=== PATIENT | female | born 1975 | race Caucasian/White ===

== ENCOUNTER 2018-01-23 20:11 | Inpatient (IN) | payer SELFPAY ==
--- NOTE | 2018-01-23 21:01 | ED PDOC ---
Addendum entered and electronically signed by Kadi Pantoja MD 01/24/18 01:26: Physical Exam Vital Signs Temp Pulse Resp BP Pulse Ox 01/24/18 00:37 100 01/23/18 20:22 98.4 F 104 H 18 116/80 100 - Systems Exam Breast/Axillary: Present: Masses, Swelling, Tender to Palpation. No: Axillary Lymphad, Discoloration, Erythema (Francisco - Nicky (RN)), Nipple Discharge, Symmetrical Original Note: HPI: Abdomen History Per: Patient History/Exam Limitations: no limitations Onset/Duration Of Symptoms: Days Outside of [place] travel?: Yes Location?: [place] Current Symptoms Are (Timing): Still Present Severity: Mild Pain Scale Rating Of: 4 Location Of Pain/Discomfort: RUQ, RLQ, Suprapubic Quality Of Discomfort: Aching, Cramping, Burning, Pressure Associated Symptoms: denies: Fever, Chills, Nausea, Vomiting, Diarrhea, Loss Of Appetite, Back Pain, Constipation, Urinary Symptoms Alleviating Factors: Other (bowel movement) Additional Complaint(s): 42 year old female with PMH of asthma presents to ED with abdominal pain and breast pain. Abdominal pain has been present for 8 days, is burning, cramping and uncomfortable with a severity of 4/10. She states that holding in a bowel movement makes it worse and having a bowel movement relieves the pain. She was recently in [place] where she saw a physician for the same pain and was admitted for 24 hour observation but all tests and scans were WNL besides an enlarged liver and gallstones. Left breast pain has been chronic since September when she had a breast biopsy in [place] for a hard mas she found on self examination. S/p biopsy the wound was not healing so she saw Dr. Winter. Since seeing Dr. Winter the wound has healed but the pain, warmth and inflammation has not resolved. Her initial diagnosis from [facility] was a benign lesion but when she recently saw her surgeon he old her it could be inflammatory breast cancer. She denies consti pation, diarrhea, blood in stool, jaundice, weight loss, night sweats, urinary frequency, urgency, incontenince and vaginal discharge, breast dimpling or leakage, but admits to increased flatus. PCP: None, Breast Dr Winter PMH: Asthma (mild intermittent, rescue inhaler once every three days, no night wakenings, no ICU/intubations) Meds: Denies Allergies: Denies SHx: Denies Social: Occasional alcohol, denies tobacco and illict drugs FHx: Father HTN, Mother DM OBHx: LMP 12/31/17, regular every 28 days, 5a6 days moderate bleeding, 4 x full term without complications <Kadi Pantoja - Last Filed: 01/24/18 01:26> <Jose Torres - Last Filed: 01/24/18 16:10> Time Seen by Provider: 01/23/18 20:24 Chief Complaint (Nursing): Abdominal Pain Past Medical History Vital Signs: Last Vital Signs Temp 98.4 F 01/23/18 20:22 Pulse 104 H 01/23/18 20:22 Resp 18 01/23/18 20:22 BP 116/80 01/23/18 20:22 Pulse Ox 100 01/23/18 20:22 - Medical History PMH: Asthma (mild intermittend - rescue 1 x 3 days, no night, no ICU/intuibation) - Surgical History Other surgeries: L breast biopsy September 2017 - Family History Family History: States: Diabetes, Hypertension - Social History Current smoker - smoking cessation education provided: No Alcohol: Social Drugs: Denies <Kadi Pantoja - Last Filed: 01/24/18 01:26> Vital Signs: Last Vital Signs Temp 99.2 F 01/24/18 15:57 Pulse 64 01/24/18 15:57 Resp 18 01/24/18 15:57 BP 123/81 01/24/18 15:57 Pulse Ox 98 01/24/18 15:57 <Jose Torres - Last Filed: 01/24/18 16:10> - Home Medications Home Medications: Ambulatory Orders Medication Instructions Recorded Amoxicillin/Clavulanate [Augmentin 1 tab PO BID 01/24/18 875 MG-125 MG Tab] - Allergies Allergies/Adverse Reactions: Allergies Allergy/AdvReac Type Severity Reaction Status Date / Time chloroquine Allergy ITCHING Verified 01/23/18 20:22 tramadol Allergy RASH Verified 01/23/18 20:19 Review of Systems Constitutional: Negative for: Fever, Chills, Sweats, Weakness, Malaise, Weight loss Eyes: Negative for: Vision Change Cardiovascular: Negative for: Chest Pain, Palpitations Respiratory: Negative for: Cough, Shortness of Breath Gastrointestinal: Negative for: Nausea, Vomiting, Diarrhea, Constipation, Melena, Hematochezia, Hematemesis, Rectal Pain Genitourinary Female: Negative for: Dysuria, Frequency, Incontinence, Hematuria, Vaginal Discharge, Vaginal Bleeding Skin: Negative for: Rash, Lesions, Jaundice, Bruising Neurological: Negative for: Weakness, Numbness Psych: Negative for: Anxiety, Depression <Kadi Pantoja - Last Filed: 01/24/18 01:26> - Laboratory Results Result Diagrams: 01/23/18 21:19 01/23/18 21:19 Urine dip results: Positive for: Blood (moderate) - ECG O2 Sat by Pulse Oximetry: 100 - Progress ED Course And Treament: 42 year old female presents with 1 week history of abdominal pain and 3 month history of breast pain. Urine dip: moderate blood blood CBC: WNL CMP: AST 98, ALT 105, Alk Phos [address]: Hepatomegaly, likely acute cholecystitis recommended US study, free pelvic fluid, umbilical hernia, skin thickening of left breast. Blood CX ordered. As per CT findings patient was started on Zosyn. Dr Winter was contacted and requested patient be admitted. Surgery resident made aware of case. <Kadi Pantoja - Last Filed: 01/24/18 01:26> - Laboratory Results Result Diagrams: 01/23/18 21:19 01/23/18 21:19 <Jose Torres - Last Filed: 01/24/18 16:10> Disposition - Patient ED Disposition Is Patient to be Admitted: Yes - Disposition Disposition Time: 00:35 <Kadi Pantoja - Last Filed: 01/24/18 01:26> <Jose Torres - Last Filed: 01/24/18 16:10> - Clinical Impression Clinical Impression: Cholecystitis - Disposition Condition: STABLE
[2018-01-23 21:37] LABS: HEMOGLOBIN 12.4 g/dL (12.0-16.0); MEAN CELL VOLUME 77.7 fl (81.0-99.0); MEAN CORPUSCULAR HEMOGLOBIN 25.6 pg (27.0-31.0); RBC 4.84 Mil/uL (3.80-5.20); RED CELL DISTRIBUTION WIDTH 15.6 % (11.5-14.5); WHITE BLOOD COUNT 9.1 K/uL (4.8-10.8)
[2018-01-23 21:40] LABS: ALBUMIN 4.4 g/dL (3.5-5.0); ALT/SGPT 105 U/L (9-52); AST/SGOT 98 U/L (14-36); BLOOD UREA NITROGEN 11 mg/dl (7-17); CALCIUM 9.5 mg/dL (8.4-10.2); GFR NON-AFRICAN AMERICAN > 60
[2018-01-23] MEDS ORDERED: Iohexol 300 100 ML IJ ONE (21:59)
[2018-01-23] MEDS ORDERED: Sodium Chloride 0.9% 50 ML IV ONE (21:59)
[2018-01-23] MEDS ORDERED: Piperacillin/Tazobact 3.375 GM in Sodium Chloride 0.9% 100 ML IVPB STA (23:53)
[2018-01-24 00:53] LABS: VENOUS BLOOD GAS BASE EXCESS 5.8 mmol/L (0.0-2.0); VENOUS BLOOD GAS PCO2 44 mmHg (40-60); VENOUS BLOOD GAS PO2 66 mm/Hg (30-55); VENOUS BLOOD PH 7.45 (7.32-7.43)
[2018-01-24] MEDS ORDERED: Piperacillin/Tazobact 3.375 gm Inj IVPB ONE (00:55)
[2018-01-24] MEDS ORDERED: Lactated Ringer's 1,000 ML IV SCH (03:00)
[2018-01-24] MEDS: Oxycodone/Acetaminophen 5/325 mg Tab PO PRN ×4 (03:02→22:48)
[2018-01-24] MEDS: Piperacillin/Tazobact 3.375 GM in Sodium Chloride 0.9% 100 ML IVPB SCH ×4 (06:00→23:22)
[2018-01-24] MEDS: Lactated Ringer's 1,000 ML IV SCH ×2 (07:06→14:30)
--- NOTE | 2018-01-24 10:02 | CT ---
Date of service: 01/23/2018 PROCEDURE: CT Abdomen and Pelvis with contrast HISTORY: abd pain COMPARISON: None. TECHNIQUE: Contrast dose: 90 mL Omnipaque 300 Radiation dose: Total exam DLP = 445.8 mGy-cm. This CT exam was performed using one or more of the following dose reduction techniques: Automated exposure control, adjustment of the mA and/or kV according to patient size, and/or use of iterative reconstruction technique. FINDINGS: LOWER THORAX: Bilateral lower lobe calcified granulomas. Heart size normal. No focal consolidation or pleural effusion. LIVER: Multiple hepatic metastases. School Bus Technician lesions include 3.8 x 5.1 cm inferior right hepatic lobe and 3.2 x 4.7 cm left hepatic lobe lesions. Hilar region the logic lymph node measuring 2.9 x 2.9 cm. GALLBLADDER AND BILE DUCTS: Calcified cholelithiasis within a mildly contracted gallbladder with severe wall thickening/edema. PANCREAS: Unremarkable. No gross lesion or ductal dilatation. SPLEEN: Unremarkable. ADRENALS: Unremarkable. No mass. KIDNEYS AND URETERS: Unremarkable. No hydronephrosis. No solid mass. VASCULATURE: Unremarkable. No aortic aneurysm. BOWEL: Unremarkable. No obstruction. No gross mural thickening. APPENDIX: No findings to suggest acute appendicitis. PERITONEUM: Small fat containing umbilical hernia. No free fluid. No free air. LYMPH NODES: Extensive upper abdominal lymphadenopathy. School Bus Technician nodes include 2.8 x 2.1 cm portacaval node and 1.6 x 2.2 cm gastrohepatic ligament node among many others. BLADDER: Unremarkable. REPRODUCTIVE: Intrauterine device in place. Dominant left ovarian follicle measuring up to 2.2 cm. Small amount of pelvic fluid. BONES: No acute fracture. OTHER FINDINGS: Marked left breast skin thickening. IMPRESSION: Marked left breast skin thickening concerning for carcinoma. Extensive hepatic metastases and upper abdominal lymphadenopathy as above described. Please note the hepatic metastases lymphadenopathy was not reported on the preliminary interpretation provided by teleradiology. Calcified cholelithiasis within a somewhat contracted gallbladder with severe wall thickening/edema. Acute cholecystitis cannot be excluded. If there is obstruction of the cystic duct, this may be secondary to extrinsic compression from hilar region pathologic lymph node. Updated findings conveyed to ROCK Burch and Dr. Winter by Dr. Diego at 9:55 a.m. on 01/24/2018.
--- NOTE | 2018-01-24 10:03 | CP.PCM.HP ---
History of Present Illness - History of Present Illness History of Present Illness: SURGERY HISTORY AND PHYSICAL FOR DR. WINTER 42 yo with PMHx of asthma, ulcers presents to the ED with left breast pain and abdominal pain. The patient was [place] the [place] from [place] when her pain returned prompting her to come to the ED when she arrived. The abdominal pain began 1 week ago. She denies nausea, vomiting or diarrhea. It is not associated with food but pt states that she has been avoiding fried food. She had an [place] in [place] which per the patient, showed an enlarged liver with a stone in her gallbladder. Her pain had resolved but then returned on the plane. Her left breast pain has been present for about 3 months. She had a screening mammogram in [place] which showed a lesion in the upper half of the left breast. In September 2017, she had a trucut biopsy in [place] which per the records the patient brought shows apocrine metaplasia. Due to her clinical and intra- operative findings, she was advised to have an excision biopsy for proper and complete histological assessment by her surgeon in [place]. Pt states that her surgeon in [place] advised her that this may be inflammatory breast cancer. When previously in the [place], she saw Dr. Winter for the breast pain after the biopsy. Hematoma was suspected at that time. Pt had an US which showed at 11-12 o'clock radius, 9cm from the nipple is an ovoid mass parallel to the plane of the skin as well as suspicious lymphadenopathy at the left axilla. Recommen dation was for US guided core biopsy to exclude malignancy. Patient is currently scheduled for biopsy on 01/27/18. PMHx: asthma, ulcers Surgeries: left breast biopsy September 2017 in [place] Allergies: chloroquine, tramadol Social history: denies etoh, tobacco abuse, illicit drug use Present on Admission - Present on Admission Any Indicators Present on Admission: No Past Patient History - Past Medical History & Family History Past Medical History?: Yes - Past Social History Smoking Status: Never Smoked - CARDIAC Hx Cardiac Disorders: No - PULMONARY Hx Respiratory Disorders: No - NEUROLOGICAL Hx Neurological Disorder: No - HEENT Hx HEENT Problems: No - ENDOCRINE/METABOLIC Hx Endocrine Disorders: No - HEMATOLOGICAL/ONCOLOGICAL Hx Blood Disorders: No Hx AIDS: No Hx Human Immunodeficiency Virus (HIV): No - INTEGUMENTARY Hx Dermatological Problems: No - MUSCULOSKELETAL/RHEUMATOLOGICAL Hx Musculoskeletal Disorders: No Hx Falls: No - GASTROINTESTINAL Hx Gastrointestinal Disorders: Yes Hx Fatty Liver Disease: Yes Hx Ulcer: Yes - GENITOURINARY/GYNECOLOGICAL Hx Genitourinary Disorders: No - PSYCHIATRIC Hx Psychophysiologic Disorder: No Hx Substance Use: No - SURGICAL HISTORY Hx Surgeries: Yes Hx Breast Biopsy: Yes Other/Comment: Left wrist cyst removed and. left breast biopsy 09/2017 in [place] - ANESTHESIA Hx Anesthesia: Yes (local) Hx Anesthesia Reactions: No Hx Malignant Hyperthermia: No Has any member of the family had a problem w/ anesthesia?: No Meds Allergies/Adverse Reactions: Allergies Allergy/AdvReac Type Severity Reaction Status Date / Time chloroquine Allergy ITCHING Verified 01/23/18 20:22 tramadol Allergy RASH Verified 01/23/18 20:19 Physical Exam - Constitutional Appears: Well, Non-toxic, No Acute Distress - Head Exam Head Exam: ATRAUMATIC, NORMAL INSPECTION - Eye Exam Eye Exam: EOMI, Normal appearance - Respiratory Exam Respiratory Exam: NORMAL BREATHING PATTERN. absent: Respiratory Distress - Cardiovascular Exam Cardiovascular Exam: +S1, +S2 - GI/Abdominal Exam GI & Abdominal Exam: Soft, Tenderness (very mild tenderness to RUQ/epigastric area). absent: Distended, Firm, Guarding, Hernia, Rebound, Rigid Additional comments: Negative Leigh sign - Skin Additional comments: Left breast superior to the nipple: large mass palpated with edema and tenderness but no erythema or skin changes. Lymphadenopathy to left axilla No masses or lymphadenopathy to right side Results - Vital Signs Recent Vital Signs: Last Vital Signs Temp 99.1 F 01/24/18 08:22 Pulse 92 H 01/24/18 08:22 Resp 19 01/24/18 08:22 BP 113/81 01/24/18 08:22 Pulse Ox 97 01/24/18 08:22 - Labs Result Diagrams: 01/23/18 21:19 01/23/18 21:19 Labs: Laboratory Results - last 24 hr 01/23/18 01/23/18 01/24/18 21:19 21:19 00:48 WBC 9.1 RBC 4.84 Hgb 12.4 Hct 37.6 MCV 77.7 L MCH 25.6 L MCHC 33.0 RDW 15.6 H Plt Count 496 H D pO2 66 H VBG pH 7.45 H VBG pCO2 44 VBG HCO3 29.3 VBG Total CO2 32.0 H VBG O2 Sat (Calc) 96.0 H VBG Base Excess 5.8 H VBG Potassium 3.7 Glucose 91 Lactate 1.9 FiO2 21.0 Sodium 140 137.0 Potassium 3.9 Chloride 97 L 101.0 Carbon Dioxide 32 H Anion Gap 15 BUN 11 Creatinine 0.7 Est GFR ( Amer) > 60 Est GFR (Non-Af Amer) > 60 Random Glucose 101 Calcium 9.5 Phosphorus 3.6 Magnesium 1.9 Total Bilirubin 0.3 AST 98 H ALT 105 H Alkaline Phosphatase 334 H Total Protein 8.7 H Albumin 4.4 Globulin 4.3 H Albumin/Globulin Ratio 1.0 Venous Blood Potassium 3.7 Assessment & Plan - Assessment and Plan (Free Text) Assessment: 42yo [place]ese F presents for abdominal pain and left breast pain. Concern for metastatic breast cancer and possible cholecysitits - Afebrile, VSS - CT: Calcified cholelithiasis within a mildly contracted gallbladder with severe wall thickening/edema. Acute cholecystitis cannot be excluded. If there is obstruction of the cystic duct, this may be secondary to extrinsic compression from hilar region pathologic lymph node. Extensive hepatic metastases and upper abdominal lymphadenopathy. Extensive upper abdominal lymphadenopathy. Injection Wax Molder nodes include 2.8 x 2.1 cm portacaval node and 1.6 x 2.2 cm gastrohepatic ligament node among many others. Marked left breast skin thickening concerning for carcinoma. - Ultrasound ordered to evaluate gallbladder - NPO in case OR - Pt needs tissue diagnosis of breast mass. Has biopsy scheduled for 01/27/18. - Discussed plan with Dr. Moy Anne PGY-4 Decision To Admit - Pt Status Changed To: Hospital Disposition Of: Observation - . Bed Request Type: Med/Surg Admitting Physician: Ector Winter
--- NOTE | 2018-01-24 11:46 | US ---
Date of service: 01/24/2018 HISTORY: cholecystitis COMPARISON: Correlations made to CT scan of the abdomen and pelvis dated 01/23/2018. TECHNIQUE: Sonographic evaluation of the right upper quadrant of the abdomen. FINDINGS: LIVER: Measures 23.1 cm in length. Normal echogenicity of the liver parenchyma. Multiple hepatic masses, the largest in the left lobe measures 4.4 x 2.2 x 3.3 cm and the largest in the right lobe measures 4.3 x 3.5 x 4.2 cm. No intrahepatic bile duct dilatation. GALLBLADDER: Cholelithiasis with gallbladder wall thickening/edema and pericholecystic fluid. COMMON BILE DUCT: Measures 4 mm. No stones. No dilatation. PANCREAS: Unremarkable as visualized. No mass. No ductal dilatation. RIGHT KIDNEY: Measures 13.1 x 3.6 x 5.7 cm in length. Normal echogenicity. No calculus, mass, or hydronephrosis. AORTA: No aneurysmal dilatation. IVC: Unremarkable. OTHER FINDINGS: None . IMPRESSION: Hepatomegaly with multiple hepatic metastases. Cholelithiasis with gallbladder wall thickening/edema and pericholecystic fluid. Sonographic Marinelli's sign was not elicited. Gallbladder wall thickening is nonspecific and may be related to cholecystitis versus reactive to hepatic pathology.
[2018-01-25] MEDS: Lactated Ringer's 1,000 ML IV SCH ×2 (02:36→06:50)
[2018-01-25] MEDS: Oxycodone/Acetaminophen 5/325 mg Tab PO PRN ×3 (04:52→17:27)
[2018-01-25] MEDS: Piperacillin/Tazobact 3.375 GM in Sodium Chloride 0.9% 100 ML IVPB SCH ×2 (04:59→12:31)
[2018-01-25 06:16] LABS: BASO % 0.4 % (0.0-2.0); EOS # 0.1 K/uL (0.0-0.7); EOS % 1.1 % (0.0-4.0); HEMOGLOBIN 11.2 g/dL (12.0-16.0); LYMPH # 0.9 K/uL (1.0-4.3); LYMPH % 10.9 % (20.0-40.0); MEAN CELL VOLUME 77.1 fl (81.0-99.0); MEAN CORPUSCULAR HEMOGLOBIN 25.1 pg (27.0-31.0); MEAN CORPUSCULAR HGB CONC 32.6 g/dL (33.0-37.0); MONO # 0.8 K/uL (0.0-0.8); NEUT # 6.2 K/uL (1.8-7.0); NEUT % 77.6 % (50.0-75.0); NRBC % 0.2 % (0.0-0.0); PROTHROMBIN TIME 11.5 Seconds (9.8-13.1); RBC 4.47 Mil/uL (3.80-5.20); RED CELL DISTRIBUTION WIDTH 15.8 % (11.5-14.5)
[2018-01-25 06:19] LABS: PARTIAL THROMBOPLASTIN TIME 27.8 Seconds (25.6-37.1)
[2018-01-25 06:51] LABS: ALBUMIN 3.7 g/dL (3.5-5.0); ALT/SGPT 105 U/L (9-52); AST/SGOT 102 U/L (14-36); BLOOD UREA NITROGEN 8 mg/dl (7-17); CALCIUM 8.5 mg/dL (8.4-10.2); GFR NON-AFRICAN AMERICAN > 60
--- NOTE | 2018-01-25 09:43 | CP.PCM.PN ---
Addendum entered and electronically signed by Ector Winter MD 01/25/18 11:12: Plan for only core biopsy today, either by radiology or myself. Original Note: Subjective - Date & Time of Evaluation Date of Evaluation: 01/25/18 Time of Evaluation: 07:00 - Subjective Subjective: SURGERY PROGRESS NOTE FOR DR. WINTER Patient seen and examined at bedside. She reports left breast pain when the pain medication wears off. Denies abdominal pain, nausea or vomiting. States just has pressure in epigastric/RUQ area when palpated. She is NPO today for radiology biopsy vs surgical excisional biopsy Objective - Vital Signs/Intake and Output Vital Signs (last 24 hours): Temp Pulse Resp BP Pulse Ox 97.9 F 94 H 19 118/80 100 01/25/18 08:14 01/25/18 08:14 01/25/18 08:14 01/25/18 08:14 01/25/18 08:14 - Medications Medications: Current Medications Diphenhydramine HCl (Benadryl) 25 mg PO Q6 PRN PRN Reason: Allergy symptoms Last Admin: 01/25/18 04:52 Dose: 25 mg Piperacillin Sod/Tazobactam (Sod 3.375 gm/ Sodium Chloride) 100 mls @ 100 mls/hr IVPB Q6H [facility]; Protocol Last Admin: 01/25/18 04:59 Dose: 100 mls/hr Lactated Ringer's (Lactated Ringer's) 1,000 mls @ 125 mls/hr IV .Q8H [facility] Last Admin: 01/25/18 06:50 Dose: Not Given Oxycodone/Acetaminophen (Percocet 5/325 Mg Tab) 1 tab PO Q4 PRN PRN Reason: Pain, moderate (4-7) Stop: 01/27/18 02:39 Last Admin: 01/25/18 04:52 Dose: 1 tab - Labs Labs: 01/25/18 05:50 01/25/18 05:50 PT 11.5 Seconds (9.8-13.1) 01/25/18 05:50 INR 1.0 01/25/18 05:50 APTT 27.8 Seconds (25.6-37.1) 01/25/18 05:50 - Constitutional Appears: Well, Non-toxic, No Acute Distress - Head Exam Head Exam: ATRAUMATIC, NORMAL INSPECTION - Eye Exam Eye Exam: EOMI, Normal appearance - Respiratory Exam Respiratory Exam: NORMAL BREATHING PATTERN. absent: Respiratory Distress Additional comments: Left breast mass w/ palpable lymph nodes - Cardiovascular Exam Cardiovascular Exam: +S1, +S2 - GI/Abdominal Exam GI & Abdominal Exam: Soft. absent: Distended, Firm, Guarding, Rigid, Tenderness, Rebound - Neurological Exam Neurological Exam: Alert, Awake, Oriented x3 - Psychiatric Exam Psychiatric exam: Normal Affect, Normal Mood - Skin Skin Exam: Dry, Normal Color, Warm Assessment and Plan - Assessment and Plan (Free Text) Assessment: 42yo Wallisian F presents for abdominal pain and left breast pain. Concern for metastatic breast cancer - CT: Calcified cholelithiasis within a mildly contracted gallbladder with severe wall thickening/edema. Acute cholecystitis cannot be excluded. If there is obstruction of the cystic duct, this may be secondary to extrinsic joann edwar from hilar region pathologic lymph node. Extensive hepatic metastases and upper abdominal lymphadenopathy. Extensive upper abdominal lymphadenopathy. General Office Associate nodes include 2.8 x 2.1 cm p ortacaval node and 1.6 x 2.2 cm gastrohepatic ligament node among many others. Marked left breast skin thickening concerning for carcinoma. - Ultrasound: cholelithiasis with gallbladder wall thickening/edema - No surgery for cholecystectomy at this time. Gallbladder findings likely secondary to liver mets/abdominal lymphadenopathy - NPO for radiologic breast biopsy vs surgical excisional biopsy today - Oncology consulted, Dr. Scales - Discussed plan with Dr. Moy Anne PGY-4
--- NOTE | 2018-01-25 10:45 | CP.PCM.CON ---
History of Present Illness - History of Present Illness History of Present Illness: This is a 42 yrs old female who came to the ED with c/o left breast pain and right upper quadrant pain as well. For the last 3 months she has had discomfort in the left breast. On mammogram she had a mass in the left breast. She had a biopsy in October 2007 and was told that she had a apocrine metaplsia. She had another biopsy in [facility] and was told that she may have a inflammatory cancer. Pt was visiting [facility] but when she was about to return to [facility] the pain was worse, so she came back to the ED. She was seen by Dr Winter and a biopsy has been scheduled for 02/27/18. She has a past h/o gastric ulcer Does not smoke or drink. Past Patient History - Past Medical History & Family History Past Medical History?: Yes - Past Social History Smoking Status: Never Smoked - CARDIAC Hx Cardiac Disorders: No - PULMONARY Hx Respiratory Disorders: No - NEUROLOGICAL Hx Neurological Disorder: No - HEENT Hx HEENT Problems: No - ENDOCRINE/METABOLIC Hx Endocrine Disorders: No - HEMATOLOGICAL/ONCOLOGICAL Hx Blood Disorders: No Hx AIDS: No Hx Human Immunodeficiency Virus (HIV): No - INTEGUMENTARY Hx Dermatological Problems: No - MUSCULOSKELETAL/RHEUMATOLOGICAL Hx Musculoskeletal Disorders: No Hx Falls: No - GASTROINTESTINAL Hx Gastrointestinal Disorders: Yes Hx Fatty Liver Disease: Yes Hx Ulcer: Yes - GENITOURINARY/GYNECOLOGICAL Hx Genitourinary Disorders: No - PSYCHIATRIC Hx Psychophysiologic Disorder: No Hx Substance Use: No - SURGICAL HISTORY Hx Surgeries: Yes Hx Breast Biopsy: Yes Other/Comment: Left wrist cyst removed and. left breast biopsy 09/2017 in [facility] - ANESTHESIA Hx Anesthesia: Yes (local) Hx Anesthesia Reactions: No Hx Malignant Hyperthermia: No Has any member of the family had a problem w/ anesthesia?: No Meds Allergies/Adverse Reactions: Allergies Allergy/AdvReac Type Severity Reaction Status Date / Time chloroquine Allergy ITCHING Verified 01/23/18 20:22 tramadol Allergy RASH Verified 01/23/18 20:19 - Medications Medications: Current Medications Diphenhydramine HCl (Benadryl) 25 mg PO Q6 PRN PRN Reason: Allergy symptoms Last Admin: 01/25/18 10:13 Dose: 25 mg Piperacillin Sod/Tazobactam (Sod 3.375 gm/ Sodium Chloride) 100 mls @ 100 mls/hr IVPB Q6H [facility]; Protocol Last Admin: 01/25/18 04:59 Dose: 100 mls/hr Lactated Ringer's (Lactated Ringer's) 1,000 mls @ 125 mls/hr IV .Q8H [facility] Last Admin: 01/25/18 06:50 Dose: Not Given Oxycodone/Acetaminophen (Percocet 5/325 Mg Tab) 1 tab PO Q4 PRN PRN Reason: Pain, moderate (4-7) Stop: 01/27/18 02:39 Last Admin: 01/25/18 10:14 Dose: 1 tab Physical Exam - Additional Findings Additional findings: Physical therapy; Alert ,well oriented, in no acute distress Neck; supple, no adenopathy Chest; clear, no rales or rhonchi hEART; RSR,no murmur Abd; Soft, no mass, no h/s megaly Left breast has a 5-6 cm mass in her left breast in the 11 oclock area. Results - Vital Signs Recent Vital Signs: Last Vital Signs Temp 97.9 F 01/25/18 08:14 Pulse 94 H 01/25/18 08:14 Resp 19 01/25/18 08:14 BP 118/80 01/25/18 08:14 Pulse Ox 100 01/25/18 08:14 - Labs Result Diagrams: 01/25/18 05:50 01/25/18 05:50 Labs: Laboratory Results - last 24 hr 01/25/18 01/25/18 01/25/18 05:50 05:50 05:50 WBC 8.0 RBC 4.47 Hgb 11.2 L Hct 34.4 MCV 77.1 L MCH 25.1 L MCHC 32.6 L RDW 15.8 H Plt Count 457 H MPV 8.0 Neut % (Auto) 77.6 H Lymph % (Auto) 10.9 L Barrow % (Auto) 10.0 Eos % (Auto) 1.1 Baso % (Auto) 0.4 Neut # (Auto) 6.2 Lymph # (Auto) 0.9 L Barrow # (Auto) 0.8 Eos # (Auto) 0.1 Baso # (Auto) 0.0 PT 11.5 INR 1.0 APTT 27.8 Sodium 139 Potassium 4.2 Chloride 101 Carbon Dioxide 27 Anion Gap 15 BUN 8 Creatinine 0.6 L Est GFR ( Amer) > 60 Est GFR (Non-Af Amer) > 60 Random Glucose 93 Calcium 8.5 Phosphorus 3.6 Magnesium 1.9 Total Bilirubin 0.4 AST 102 H ALT 105 H Alkaline Phosphatase 331 H Total Protein 7.4 Albumin 3.7 Globulin 3.7 Albumin/Globulin Ratio 1.0
[2018-01-25] MEDS ORDERED: Lidocaine 1% w Epi 1:100,000 Inj ONE (13:32)
[2018-01-25] MEDS ORDERED: Lidocaine 1% 5ml Abboject ONE (13:32)
[2018-01-25] MEDS ORDERED: Bacitracin 500 Units/gm Oint Foilpak UD ONE (13:33)
[2018-01-25 13:54] VITALS: RESP 18
[2018-01-25] MEDS ORDERED: Lactated Ringer's 1,000 ML IV SCH (15:49)
[2018-01-25 15:57] VITALS: BP 125/86; PULSE 103; TEMP 98.5; O2SAT 99
--- NOTE | 2018-01-25 17:40 | CP.PCM.DIS ---
Provider - Provider Date of Admission: 01/24/18 00:00 Attending physician: Ector Winter MD Time Spent in preparation of Discharge (in minutes): 15 Diagnosis - Discharge Diagnosis (1) Mass of breast, left Status: Acute Priority: High Onset Date: ~11/25/17 Comment: s/p biopsy, pathology pending (2) Liver metastases Status: Acute Comment: Presumed, based on CT, ultrasound finding Hospital Course - Lab Results Lab Results: Micro Results 01/24/18 00:30 Blood Blood Culture - Preliminary NO GROWTH AFTER 24 HOURS Most Recent Lab Values WBC 8.0 K/uL (4.8-10.8) 01/25/18 05:50 RBC 4.47 Mil/uL (3.80-5.20) 01/25/18 05:50 Hgb 11.2 g/dL (12.0-16.0) L 01/25/18 05:50 Hct 34.4 % (34.0-47.0) 01/25/18 05:50 MCV 77.1 fl (81.0-99.0) L 01/25/18 05:50 MCH 25.1 pg (27.0-31.0) L 01/25/18 05:50 MCHC 32.6 g/dL (33.0-37.0) L 01/25/18 05:50 RDW 15.8 % (11.5-14.5) H 01/25/18 05:50 Plt Count 457 K/uL (130-400) H 01/25/18 05:50 MPV 8.0 fl (7.2-11.7) 01/25/18 05:50 Neut % (Auto) 77.6 % (50.0-75.0) H 01/25/18 05:50 Lymph % (Auto) 10.9 % (20.0-40.0) L 01/25/18 05:50 [place] % (Auto) 10.0 % (0.0-10.0) 01/25/18 05:50 Eos % (Auto) 1.1 % (0.0-4.0) 01/25/18 05:50 Baso % (Auto) 0.4 % (0.0-2.0) 01/25/18 05:50 Neut # (Auto) 6.2 K/uL (1.8-7.0) 01/25/18 05:50 Lymph # (Auto) 0.9 K/uL (1.0-4.3) L 01/25/18 05:50 [place] # (Auto) 0.8 K/uL (0.0-0.8) 01/25/18 05:50 Eos # (Auto) 0.1 K/uL (0.0-0.7) 01/25/18 05:50 Baso # (Auto) 0.0 K/uL (0.0-0.2) 01/25/18 05:50 PT 11.5 Seconds (9.8-13.1) 01/25/18 05:50 INR 1.0 01/25/18 05:50 APTT 27.8 Seconds (25.6-37.1) 01/25/18 05:50 pO2 66 mm/Hg (30-55) H 01/24/18 00:48 VBG pH 7.45 (7.32-7.43) H 01/24/18 00:48 VBG pCO2 44 mmHg (40-60) 01/24/18 00:48 VBG HCO3 29.3 mmol/L 01/24/18 00:48 VBG Total CO2 32.0 mmol/L (22-28) H 01/24/18 00:48 VBG O2 Sat (Calc) 96.0 % (40-65) H 01/24/18 00:48 VBG Base Excess 5.8 mmol/L (0.0-2.0) H 01/24/18 00:48 VBG Potassium 3.7 mmol/L (3.6-5.2) 01/24/18 00:48 Sodium 137.0 mmol/L (132-148) 01/24/18 00:48 Chloride 101.0 mmol/L (98-107) 01/24/18 00:48 Glucose 91 mg/dL (65-105) 01/24/18 00:48 Lactate 1.9 mmol/L (0.7-2.1) 01/24/18 00:48 FiO2 21.0 % 01/24/18 00:48 Sodium 139 mmol/l (132-148) 01/25/18 05:50 Potassium 4.2 MMOL/L (3.6-5.0) 01/25/18 05:50 Chloride 101 mmol/L (98-107) 01/25/18 05:50 Carbon Dioxide 27 mmol/L (22-30) 01/25/18 05:50 Anion Gap 15 (10-20) 01/25/18 05:50 BUN 8 mg/dl (7-17) 01/25/18 05:50 Creatinine 0.6 mg/dl (0.7-1.2) L 01/25/18 05:50 Est GFR ( Amer) > 60 01/25/18 05:50 Est GFR (Non-Af Amer) > 60 01/25/18 05:50 Random Glucose 93 mg/dL (65-105) 01/25/18 05:50 Calcium 8.5 mg/dL (8.4-10.2) 01/25/18 05:50 Phosphorus 3.6 mg/dl (2.5-4.5) 01/25/18 05:50 Magnesium 1.9 MG/DL (1.6-2.3) 01/25/18 05:50 Total Bilirubin 0.4 mg/dl (0.2-1.3) 01/25/18 05:50 AST 102 U/L (14-36) H 01/25/18 05:50 ALT 105 U/L (9-52) H 01/25/18 05:50 Alkaline Phosphatase 331 U/L (38-126) H 01/25/18 05:50 Total Protein 7.4 G/DL (6.3-8.2) 01/25/18 05:50 Albumin 3.7 g/dL (3.5-5.0) 01/25/18 05:50 Globulin 3.7 gm/dL (2.2-3.9) 01/25/18 05:50 Albumin/Globulin Ratio 1.0 (1.0-2.1) 01/25/18 05:50 Venous Blood Potassium 3.7 mmol/L (3.6-5.2) 01/24/18 00:48 - Hospital Course Hospital Course: Patient with L breast mass, s/p negative biopsy in [place], notes increasing pain and swelling L breast. CT scan now with possible liver mets. Ultrasound guided biopsy done, awaiting pathology Discharge Exam - Head Exam Head Exam: ATRAUMATIC, NORMAL INSPECTION - Eye Exam Eye Exam: EOMI. absent: Scleral icterus - ENT Exam ENT Exam: Mucous Membranes Moist - Neck Exam Neck exam: Full Rom - Respiratory Exam Respiratory Exam: UNREMARKABLE - Cardiovascular Exam Cardiovascular Exam: REGULAR RHYTHM - GI/Abdominal Exam GI & Abdominal Exam: Normal Bowel Sounds, Unremarkable. absent: Tenderness - Additional Findings Additional findings: L breast upper portion swollen. No skin changes. Discharge Plan - Discharge Medications Prescriptions: oxyCODONE/Acetaminophen [Percocet 5/325 mg Tab] 1 tab PO Q4 PRN #20 tab PRN Reason: Pain, Moderate (4-7) - Follow Up Plan Condition: STABLE Disposition: HOME/ ROUTINE Instructions: Cholecystitis (DC), Cholecystitis (GEN)
--- NOTE | 2018-01-26 07:47 | US ---
Date of service: 01/25/2018 PROCEDURE: ULTRASOUND-GUIDED CORE NEEDLE BIOPSY LEFT BREAST History Left breast mass increasing in size and palpability. TECHNIQUE/FINDINGS: Following full discussion of risks and benefits of the procedure with the patient including alternatives, patient freely gave written consent. Time out was called. Following sonographic identification of the lesion in question, maximum sterile barrier protection was provided to the skin overlying the lesion. Area of the procedure was marked. 2 cc of lidocaine was utilized for skin anesthesia and 4 cc of lidocaine with epinephrine was utilized for deep tissue anesthesia in both deep and superficial soft tissues local to two mass components with slightly different sonographic appearance, identified as Segment A (ovoid, deep) And Segment B (arborescent-nodular, superficial). A small incision was made using a scalpel and a 14-gauge coaxial core biopsy needle system was utilized under ultrasound control to obtain 3 core biopsies by 4 passes through Segment A. The guiding needle was redirected through the same incision site and advanced into Segment B with 3 additional core biopsies obtained by 3 passes. The initial 2 specimen were placed in separate buffered 10% formalin solution containers labeled Specimen A and Specimen B and sent to pathology. A solitary core from each segment was sent to microbiology for additional testing as well. A [place] U shaped biopsy clip was placed in segment a with [place] X shaped clip placed at segment be immediately after each set of biopsies. Postprocedure ultrasound demonstrates U shaped clip within segment A and x-ray clip within Segment B. Postprocedure mammogram is adequately concordant with sonographic appearance. Patient tolerated procedure well with very minimal blood loss. IMPRESSION: Status post ultrasound-guided core needle biopsy left breast as per above. An addendum will be issued when final pathology results are available
== END 2018-01-25 19:40 | disposition home or self-care (01) | DRG 598 ==
LOC: H.ER 20:11 → H.ERHOLD 01-24 → H.MEDSURG1 01-24 02:14
PROVIDERS: ADMIT Specialist; ATTEND Specialist
PROC: 0HBU3ZX Excision of Left Breast, Percutaneous Approach, Diagnostic (ICD-10-PCS; principal; 2018-01-25)
DX: C50.912 Malignant neoplasm of unspecified site of left female breast (principal); C78.7 Secondary malignant neoplasm of liver and intrahepatic bile duct; J45.20 Mild intermittent asthma, uncomplicated; K80.20 Calculus of gallbladder without cholecystitis without obstruction; R59.1 Generalized enlarged lymph nodes; Z88.6 Allergy status to analgesic agent; K76.0 Fatty (change of) liver, not elsewhere classified

== ENCOUNTER 2018-02-04 09:46 | Day surgery (SDC) | payer OTHER ==
[2018-02-04 10:34] VITALS: BMI 28.3
[2018-02-04] MEDS ORDERED: Lactated Ringer's 1,000 ML IV ONE ×2 (11:46→16:03)
[2018-02-04] MEDS ORDERED: Albuterol HFA 90 mcg/actuation (8 g) ONE (12:49)
--- NOTE | 2018-02-04 14:37 | CP.SDSHP ---
Same Day Surgery H & P - History Proposed Procedure: Port placement Pre-Op Diagnosis: Breast cancer - Allergies Allergies: Allergies chloroquine Allergy (Verified 02/04/18 10:35) ITCHING tramadol Allergy (Verified 02/04/18 10:35) SHORTNESS OF BREATH - Physical Exam Vital Signs: Vital Signs 02/04/18 11:29 Temperature 99 F Pulse Rate 93 H Respiratory 20 Rate Blood Pressure 119/77 O2 Sat by Pulse 98 Oximetry Mental Status: Alert & Oriented x3 Neuro: WNL Heart: WNL Lungs: WNL - Impression Impression: Pt with left breast cancer referred for port placement. Plan right IJV port placement. Informed consent obtained. Pt. Evaluated Today:Candidate for Anesthesia & Procedure: Yes (ASA 3 Malampati 3) - Date & Time Date: 02/04/18 Time: 14:30 Short Stay Discharge - Short Stay Discharge Admitting Diagnosis/Reason for Visit: BREAST CA, C50.9
[2018-02-04] MEDS ORDERED: Lidocaine 1% 5ml Abboject ONE ×2 (14:41→14:48)
[2018-02-04] MEDS ORDERED: Lidocaine 1% w Epi 1:100,000 Inj ONE (14:42)
--- NOTE | 2018-02-04 15:56 | PCM.SURG1 ---
Surgeon's Initial Post Op Note - Surgeon's Notes Surgeon: Donavan Morocho MD Signs And Displays Salesperson: NONE Type of Anesthesia: IV Sedation, Moderate Sedation{RN} Pre-Operative Diagnosis: Breast cancer Operative Findings: US showed patent right IJV Post-Operative Diagnosis: Breast cancer Operation Performed: Right IJ port placement. Specimen/Specimens Removed: NONE Estimated Blood Loss: EBL {In ML}: 10 Blood Products Given: N/A Drains Used: No Drains Post-Op Condition: Good Date of Surgery/Procedure: 02/04/18 Time of Surgery/Procedure: 15:50
[2018-02-04 16:10] VITALS: RESP 18
[2018-02-04] MEDS ORDERED: Lactated Ringer's 1,000 ML IV SCH (16:15)
[2018-02-04 17:36] VITALS: O2SAT 100
[2018-02-04 18:17] VITALS: BP 128/67; PULSE 64; TEMP 99.2
--- NOTE | 2018-02-05 11:07 | VASCULAR ---
PROCEDURE: Date of procedure: 02/04/2018 Procedure: 1. Placement of a right IJ port catheter with ultrasound and fluoroscopic guidance, CPT 84959 2. Catheter tip confirmation with spot radiograph in the superior vena cava. Medications: The patient was sedated anesthesiologist along with monitoring, Ancef 1 gm, Lidocaine 1% w Epinephrine Fluoroscopic time: 44.7 Seconds Radiation: 5.97 MGy Blood loss: 4 cc HISTORY: Breast cancer requiring port for chemotherapy TECHNIQUE: Following informed consent the procedure time-out, patient was placed supine on the interventional table and the right neck and chest were prepped and draped in the usual sterile fashion. Ultrasound showed a compressible right internal jugular vein. After the patient was sedated by the anesthesiologist, the skin anesthetized with 1% lidocaine with epinephrine. Under direct ultrasound guidance, the right internal jugular vein was accessed with micropuncture technique. A guidewire was then advanced under fluoroscopic guidance into the superior vena cava. An image documenting ultrasound guidance for vascular access was permanently saved. The subcutaneous tissue of patient right chest was infiltrated with 1 percent lidocaine with epinephrine. A dermatotomy was made with a 15. Scalpel. The port pocket was then created with blunt dissection using a Yari clamp. The port pocket was flushed. A port catheter was then tunneled under the skin and out the venotomy site. The port catheter was flushed, advanced through a peel-away sheath, adjusted for length, and attached to the port. The port was placed in the port pocket and was secured with 2-0 SurgiPro sutures. The port was flushed and locked with heparin. The port pocket was then closed with absorbable 4-0 Polysorb sutures. The port pocket and the venotomy site were reprepped with ChloraPrep. Steri-Strips were then applied to the port incision also venotomy site. A sterile dressing was then applied. Final spot radiograph showed the right IJ port catheter with tip of the port catheter in the superior vena cava. A port is functional and ready for use. IMPRESSION: Placement of right IJ port catheter. The tip of the port is in the superior vena cava.
== END 2018-02-04 18:30 | disposition home or self-care (01) ==
LOC: H.OPSURG 09:46
PROVIDERS: ATTEND Specialist
DX: C50.912 Malignant neoplasm of unspecified site of left female breast (principal)
CPT/HCPCS: 36561; A4310; C1751; C1769; J0690; J1885; J2250; J2405; J3010; J7120

== ENCOUNTER 2018-02-19 21:26 | Emergency (ER) | payer SELFPAY ==
[2018-02-19 21:27] VITALS: BMI 28.8
[2018-02-19 21:49] VITALS: O2SAT 96
[2018-02-19] MEDS ORDERED: Sodium Chloride 0.9% 1,000 ML IV STA (22:40)
[2018-02-19 23:31] LABS: VENOUS BLOOD GAS BASE EXCESS 6.9 mmol/L (0.0-2.0); VENOUS BLOOD GAS PCO2 46 mmHg (40-60); VENOUS BLOOD GAS PO2 38 mm/Hg (30-55); VENOUS BLOOD PH 7.45 (7.32-7.43)
[2018-02-19 23:35] LABS: BASO # 0.1 K/uL (0.0-0.2); BASO % 0.5 % (0.0-2.0); EOS % 0.1 % (0.0-4.0); HEMOGLOBIN 9.1 g/dL (12.0-16.0); LYMPH # 2.4 K/uL (1.0-4.3); LYMPH % 9.7 % (20.0-40.0); MEAN CELL VOLUME 72.8 fl (81.0-99.0); MEAN CORPUSCULAR HEMOGLOBIN 23.2 pg (27.0-31.0); MEAN CORPUSCULAR HGB CONC 31.8 g/dL (33.0-37.0); MEAN PLATELET VOLUME 8.4 fl (7.2-11.7); MONO # 3.4 K/uL (0.0-0.8); MONO % 13.5 % (0.0-10.0); NEUT # 18.9 K/uL (1.8-7.0); NEUT % 76.2 % (50.0-75.0); NRBC % 0.4 % (0.0-0.0); PLATELET COUNT 266 K/uL (130-400); RBC 3.92 Mil/uL (3.80-5.20); RED CELL DISTRIBUTION WIDTH 17.7 % (11.5-14.5); WHITE BLOOD COUNT 24.9 K/uL (4.8-10.8)
[2018-02-19 23:49] LABS: ALBUMIN 3.9 g/dL (3.5-5.0); ALT/SGPT 55 U/L (9-52); AST/SGOT 94 U/L (14-36); BILIRUBIN,DIRECT 0.2 mg/ml (0.0-0.4); BLOOD UREA NITROGEN 10 mg/dl (7-17); CALCIUM 9.4 mg/dL (8.4-10.2); GFR NON-AFRICAN AMERICAN > 60
[2018-02-20 01:26] LABS: SQUAMOUS EPITHIAL 3 /hpf (0-5); URINE BACTERIA RARE (<OCC); URINE BILIRUBIN NEGATIVE (NEGATIVE); URINE BLOOD NEGATIVE (NEGATIVE); URINE CLARITY SLIGHTY-CLOUDY (Clear); URINE COLOR YELLOW (YELLOW); URINE GLUCOSE (UA) NEG (Normal); URINE LEUKOCYTE ESTERASE NEG Leu/uL (Negative); URINE PROTEIN 30 mg/dL (NEGATIVE); URINE UROBILINOGEN 0.2-1.0 mg/dL (0.2-1.0)
[2018-02-20 01:32] VITALS: BP 135/85; PULSE 98; RESP 18; TEMP 98.8
[2018-02-20 01:33] LABS: BANDS 7 % (0-2); BASOPHIL 1 % (0-2); GIANT PLATELETS PRESENT; LARGE PLATELETS PRESENT; LYMPHOCYTE 13 % (20-50); METAMYELOCYTE 6 % (0-0); MONOCYTE 10 % (0-10); MYELOCYTE 9 % (0-0); NEUTROPHIL 54 % (42-75); PLATELET ESTIMATE NORMAL (NORMAL); SMUDGE CELLS PRESENT; TOTAL CELLS COUNTED 100
[2018-02-20 01:34] LABS: ANISOCYTOSIS SLIGHT
[2018-02-20 01:36] LABS: HYPOCHROMIC SLIGHT; MICROCYTOSIS SLIGHT
[2018-02-20 01:37] LABS: TOXIC GRANULATION PRESENT
--- NOTE | 2018-02-20 02:38 | ED PDOC ---
HPI: Headache Time Seen by Provider: 02/19/18 22:30 Chief Complaint (Nursing): Headache Chief Complaint (Provider): Headache History Per: Patient History/Exam Limitations: no limitations Onset/Duration Of Symptoms: Days (x3) Current Symptoms Are (Timing): Still Present Quality: Other (Throbbing) Additional Complaint(s): 42 y/o female with a PMHx of Active Breast Cancer presents to the ED for evaluation of a headache, onset three days ago. Patient is currently undergoing AC-T chemotherapy and had her last infusion on 02/08/2018. Patient describes headache as throbbing, non-thunder clap and is not maximal at onset. Patient reports headache is associated with a fever (TMax of 100.3 at home), dry, non- productive cough, urinary symptoms, nausea, vomiting, abdominal pain, recent travel and sick contacts. PMD: Mahendra Scales Past Medical History Reviewed: Historical Data, Nursing Documentation, Vital Signs Vital Signs: Last Vital Signs Temp 98.8 F 02/20/18 01:25 Pulse 98 H 02/20/18 01:25 Resp 18 02/20/18 01:25 BP 135/85 02/20/18 01:25 Pulse Ox 96 02/20/18 01:25 - Medical History PMH: Asthma Denies: HIV Other PMH: Breast CA - Surgical History Surgical History: No Surg Hx - Family History Family History: States: Diabetes, Hypertension - Home Medications Home Medications: Ambulatory Orders Medication Instructions Recorded oxyCODONE/Acetaminophen [Percocet 1 tab PO Q4 PRN #20 tab 01/25/18 5/325 mg Tab] DiphenhydrAMINE [Benadryl] 25 mg PO ASDIR PRN 02/04/18 Acetaminophen [Tylenol] 1 tab PO PRN PRN 02/08/18 Amoxicillin 500 mg PO TID 7 Days #21 tablet 02/20/18 - Allergies Allergies/Adverse Reactions: Allergies Allergy/AdvReac Type Severity Reaction Status Date / Time chloroquine Allergy ITCHING Verified 02/19/18 21:43 tramadol Allergy SHORTNESS Verified 02/19/18 21:43 OF BREATH Review of Systems ROS Statement: Except As Marked, All Systems Reviewed And Found Negative Constitutional: Positive for: Fever Respiratory: Positive for: Cough Gastrointestinal: Negative for: Nausea, Vomiting, Abdominal Pain Genitourinary Female: Negative for: Dysuria, Frequency, Incontinence, Hematuria Neurological: Positive for: Headache Physical Exam - Reviewed Nursing Documentation Reviewed: Yes Vital Signs Reviewed: Yes - Physical Exam Appears: Negative for: Well (Tired appearing) Head Exam: Positive for: ATRAUMATIC, NORMOCEPHALIC Skin: Positive for: Normal Color, Warm Eye Exam: Positive for: Normal appearance, EOMI, PERRL Neck: Positive for: Normal, Painless ROM Cardiovascular/Chest: Positive for: Regular Rate, Rhythm. Negative for: Murmur Respiratory: Positive for: Normal Breath Sounds. Negative for: Respiratory Distress Gastrointestinal/Abdominal: Positive for: Normal Exam, Soft. Negative for: Tenderness Back: Positive for: Normal Inspection. Negative for: L CVA Tenderness, R CVA Tenderness, Vertebral Tenderness Extremity: Positive for: Normal ROM. Negative for: Pedal Edema, Deformity Neurologic/Psych: Positive for: Alert, Oriented. Negative for: Motor/Sensory Deficits, Aphasia - Laboratory Results Result Diagrams: 02/19/18 23:27 02/19/18 23:27 - ECG O2 Sat by Pulse Oximetry: 96 (RA) Pulse Ox Interpretation: Normal Medical Decision Making Medical Decision Making: A/P: 42 y/o female with a PMHx of Breast CA presenting with fever of a currently unknown source. ] -- Will initiate sepsis workup -- Hydrate -- Re-evaluate -- VBG -- CT Head w/o contrast -- BMP -- Liver Profile -- CBC with Differentials -- CXR Two Views -- Influenza Type A and B AB -- Sodium Chloride 0.9% IV 1000 mls/hr -- Reglan 10 mg IVPB -- Tylenol 650 mg PO -- Blood Culture -- Urine C&S -- Influenza A B -- Urinalysis Case discussed with Dr. Scales who states patient can followup as outpatient, advised prophylactic ABx that she will evaluate for discontinuation upon office visit Patient is feeling much better, very well appearing Vitals improved Scribe Attestation: Documented by Dian Martínez, acting as a scribe for Mynor Pate MD. Provider Scribe Attestation: All medical record entries made by the Scribe were at my direction and personally dictated by me. I have reviewed the chart and agree that the record a ccurately reflects my personal performance of the history, physical exam, medical decision making, and the department course for this patient. I have also personally directed, reviewed, and agree with the discharge instructions and disposition. Disposition - Clinical Impression Clinical Impression: Fever - Disposition Referrals: Mahendra Scales MD [Family Provider] - Disposition: Routine/Home Disposition Time: 02:40 Condition: STABLE Prescriptions: Amoxicillin 500 mg PO TID 7 Days #21 tablet Instructions: Fever of Unknown Origin Forms: [facility] (Djiboutian)
--- NOTE | 2018-02-20 10:14 | RAD ---
Date of service: 02/19/2018 HISTORY: Breast CA, fever COMPARISON: No prior. TECHNIQUE: Chest PA and lateral FINDINGS: LUNGS: No active pulmonary disease. PLEURA: No significant pleural effusion identified. No pneumothorax apparent. CARDIOVASCULAR: No aortic atherosclerotic calcification present. Normal cardiac size. No pulmonary vascular congestion. OSSEOUS STRUCTURES: No significant abnormalities. VISUALIZED UPPER ABDOMEN: Normal. OTHER FINDINGS: Right internal jugular access chest port with catheter tip in the internal jugular vein. IMPRESSION: No active disease. Malpositioned chest port with catheter tip in the internal jugular vein. ER notification submitted electronically.
--- NOTE | 2018-02-20 10:17 | CT ---
Date of service: 02/19/2018 PROCEDURE: CT HEAD WITHOUT CONTRAST. HISTORY: breast CA, headache, fever COMPARISON: None available. TECHNIQUE: Axial computed tomography images were obtained through the head/brain without intravenous contrast. Radiation dose: Total exam DLP = 840.36 mGy-cm. This CT exam was performed using one or more of the following dose reduction techniques: Automated exposure control, adjustment of the mA and/or kV according to patient size, and/or use of iterative reconstruction technique. FINDINGS: HEMORRHAGE: No intracranial hemorrhage. BRAIN: No mass effect or edema. No atrophy or chronic microvascular ischemic changes. VENTRICLES: Unremarkable. No hydrocephalus. CALVARIUM: Unremarkable. PARANASAL SINUSES: Near complete opacification of the left maxillary sinus. MASTOID AIR CELLS: Unremarkable as visualized. No inflammatory changes. OTHER FINDINGS: None. IMPRESSION: No acute intracranial pathology. Left maxillary sinus disease.
== END 2018-02-20 01:38 | disposition home or self-care (01) ==
LOC: H.ER 21:26
DX: R50.9 Fever, unspecified (principal); C50.919 Malignant neoplasm of unspecified site of unspecified female breast
CPT/HCPCS: 70450; 71046; 80048; 80076; 81003; 81025; 82803; 85025; 87040; 87086; 87804; 96374; 99285; J1885; J2765; J7030

== ENCOUNTER 2018-03-01 13:52 | Emergency (ER) | payer SELFPAY ==
[2018-03-01 13:52] VITALS: BMI 27.3
[~2018-03-01 13:52] MED LIST: Albuterol-Ipratrop 3 mg / 0.5 (3 ml) UD ONE
[2018-03-01 14:02] VITALS: RESP 16; TEMP 98.6; O2SAT 100
--- NOTE | 2018-03-01 14:15 | ED PDOC ---
HPI: SOB/CHF/COPD Time Seen by Provider: 03/01/18 13:58 Chief Complaint (Nursing): Allergic Reaction History Per: Patient Onset/Duration Of Symptoms: Hrs (1) Current Symptoms Are (Timing): Better Initiating Event: Possible Allergic Reaction Quality: Tightness Severity: Moderate Additional Complaint(s): Transferred from infusion center after developing sudden onset SOB and wheezing after receiving Taxol for Breast Ca. Had received Taxol in past with no reaction. Received Decadron, Benadryl and nebulizer txs prior to arrival with improvement. Past Medical History Vital Signs: Last Vital Signs Temp 98.6 F 03/01/18 13:59 Pulse 92 H 03/01/18 13:59 Resp 16 03/01/18 13:59 BP 127/75 03/01/18 13:59 Pulse Ox 100 03/01/18 13:59 - Medical History PMH: Asthma, Malignancy (Breast) Denies: HIV - Family History Family History: States: Diabetes, Hypertension - Home Medications Home Medications: Ambulatory Orders Medication Instructions Recorded DiphenhydrAMINE [Benadryl] 25 mg PO ASDIR PRN 02/04/18 Acetaminophen [Tylenol] 1 tab PO PRN PRN 02/08/18 DiphenhydrAMINE [Benadryl] 25 mg PO Q6 #20 cap 03/01/18 Famotidine [Pepcid] 20 mg PO Q12 #20 tab 03/01/18 Prednisone 50 mg PO DAILY #5 tab 03/01/18 - Allergies Allergies/Adverse Reactions: Allergies Allergy/AdvReac Type Severity Reaction Status Date / Time chloroquine Allergy ITCHING Verified 02/19/18 21:43 tramadol Allergy SHORTNESS Verified 02/19/18 21:43 OF BREATH Review of Systems ROS Statement: Except As Marked, All Systems Reviewed And Found Negative Respiratory: Positive for: Shortness of Breath Gastrointestinal: Positive for: Abdominal Pain Physical Exam - Reviewed Nursing Documentation Reviewed: Yes Vital Signs Reviewed: Yes - Physical Exam Appears: Positive for: Non-toxic, No Acute Distress Head Exam: Positive for: ATRAUMATIC, NORMAL INSPECTION, NORMOCEPHALIC Skin: Positive for: Normal Color, Warm, DRY Eye Exam: Positive for: EOMI, Normal appearance, PERRL ENT: Positive for: Normal ENT Inspection Neck: Positive for: Normal, Painless ROM Cardiovascular/Chest: Positive for: Regular Rate, Rhythm Respiratory: Positive for: Wheezing (Mild end expiratory). Negative for: Respiratory Distress Gastrointestinal/Abdominal: Positive for: Normal Exam, Soft Back: Positive for: Normal Inspection Extremity: Positive for: Normal ROM Neurologic/Psych: Positive for: Alert, Oriented - Laboratory Results Result Diagrams: 03/01/18 15:30 03/01/18 15:30 - ECG O2 Sat by Pulse Oximetry: 100 - Progress Re-evaluation Time: 16:51 Condition: Improved Disposition - Clinical Impression Clinical Impression: Allergic reaction - Patient ED Disposition Is Patient to be Admitted: No Counseled Patient/Family Regarding: Studies Performed, Diagnosis, Need For Followup, Rx Given - Disposition Referrals: Mahendra Scales MD [Staff Provider] - Disposition: Routine/Home Disposition Time: 16:50 Condition: FAIR Prescriptions: DiphenhydrAMINE [Benadryl] 25 mg PO Q6 #20 cap Famotidine [Pepcid] 20 mg PO Q12 #20 tab Prednisone 50 mg PO DAILY #5 tab Instructions: Drug Allergy Forms: [facility] (Serbian)
[2018-03-01] MEDS ORDERED: Iodixanol 320 MG/ML 100 ML BOTTLE IV ONE (14:34)
[2018-03-01] MEDS ORDERED: Sodium Chloride 0.9% 50 ML IV ONE (14:34)
--- NOTE | 2018-03-01 14:50 | CARD ---
APPROVED REPORT Date of service: 03/01/2018 EKG Measurement Heart [id number] <Conclusion> Sinus tachycardia Otherwise normal ECG
[2018-03-01 15:46] LABS: BASO # 0.1 K/uL (0.0-0.2); BASO % 0.8 % (0.0-2.0); EOS % 0.1 % (0.0-4.0); LYMPH # 1.6 K/uL (1.0-4.3); LYMPH % 11.9 % (20.0-40.0); MEAN CELL VOLUME 72.5 fl (81.0-99.0); MEAN CORPUSCULAR HEMOGLOBIN 23.1 pg (27.0-31.0); MEAN CORPUSCULAR HGB CONC 31.8 g/dL (33.0-37.0); MEAN PLATELET VOLUME 8.4 fl (7.2-11.7); MONO # 0.7 K/uL (0.0-0.8); MONO % 5.7 % (0.0-10.0); NEUT # 10.7 K/uL (1.8-7.0); NEUT % 81.5 % (50.0-75.0); NRBC % 8.8 % (0.0-0.0); RBC 4.33 Mil/uL (3.80-5.20); RED CELL DISTRIBUTION WIDTH 19.3 % (11.5-14.5); WHITE BLOOD COUNT 13.1 K/uL (4.8-10.8)
[2018-03-01 16:01] LABS: ALB/GLOB RATIO 1.1 (1.0-2.1); ALBUMIN 4.8 g/dL (3.5-5.0); ALT/SGPT 30 U/L (9-52); AST/SGOT 64 U/L (14-36); BLOOD UREA NITROGEN 10 mg/dl (7-17); CALCIUM 9.5 mg/dL (8.4-10.2); GFR NON-AFRICAN AMERICAN > 60
--- NOTE | 2018-03-01 16:16 | CT ---
Date of service: 03/01/2018 PROCEDURE: CT Chest with contrast (Pulmonary Angiogram) HISTORY: SOB h/o breast Ca COMPARISON: Abdomen pelvis CT with contrast 01/23/2018. TECHNIQUE: Axial computed tomography images were obtained of the chest in the pulmonary arterial phase of enhancement. Coronal and sagittal reformatted images were created and reviewed. Intravenous contrast dose: Visipaque 320, 80 cc Radiation dose: Total exam DLP = 349.2 mGy-cm. This CT exam was performed using one or more of the following dose reduction techniques: Automated exposure control, adjustment of the mA and/or kV according to patient size, and/or use of iterative reconstruction technique. FINDINGS: PULMONARY ARTERIES: No CT evidence of pulmonary embolism. AORTA: No acute findings. No thoracic aortic aneurysm. No aortic atherosclerotic calcification or mural plaque present. LUNGS: Minimal bibasilar dependent atelectasis identified. Central airways appear clear. No nodule, mass or pulmonary consolidation. PLEURAL SPACES: Unremarkable. No effusion or pneumothorax. HEART: Unremarkable. No cardiomegaly. No significant pericardial effusion. LYMPH NODES: Gross left axillary adenopathy identified including a 3.1 x 2.1 cm cm lymph node. Similar lymph nodes are seen in the retro pectoralis region as well. BONES, CHEST WALL: Enlarged left breast is appreciated with markedly thickened skin and surgical clips at the upper left breast. OTHER FINDINGS: Likely hepatic metastases again evident. IMPRESSION: No CT evidence of pulmonary embolus. No infiltrate, pleural or pericardial effusion or significant mediastinal lymphadenopathy. No gross hilar adenopathy. Gross pathological changes seen related to the left breast in this patient with known history of aggressive left breast invasive ductal carcinoma with marked left axillary and retropectoral lymphadenopathy. No definite evidence of pulmonary metastasis at this time. Likely a patent metastases again evident.
--- NOTE | 2018-03-01 16:45 | RAD ---
Date of service: 03/01/2018 HISTORY: SOB COMPARISON: Chest radiographs 02/19/2018. TECHNIQUE: Chest PA and lateral FINDINGS: LUNGS: No active pulmonary disease. PLEURA: No significant pleural effusion identified. No pneumothorax apparent. CARDIOVASCULAR: No aortic atherosclerotic calcification present. Right MediPort is again identified placed with the tip terminating in the mid right internal jugular vein region directed cephalad rather than caudad as previously shown. Normal cardiac size. No pulmonary vascular congestion. OSSEOUS STRUCTURES: No significant abnormalities. VISUALIZED UPPER ABDOMEN: Normal. OTHER FINDINGS: None. IMPRESSION: No interval acute cardiopulmonary disease. Distal tip of right MediPort now directed cephalad but still in the right inferior vena cava.
[2018-03-01 17:08] VITALS: BP 117/81; PULSE 68
== END 2018-03-01 17:08 | disposition home or self-care (01) ==
LOC: H.ER 13:52
DX: T78.40XA Allergy, unspecified, initial encounter (principal); J44.9 Chronic obstructive pulmonary disease, unspecified; Z85.3 Personal history of malignant neoplasm of breast
CPT/HCPCS: 71046; 71275; 80053; 81025; 85025; 93005; 96374; 99283; Q9967

== ENCOUNTER 2018-03-03 09:37 | Day surgery (SDC) | payer OTHER ==
[2018-03-03 10:02] VITALS: BMI 26.2
[2018-03-03] MEDS ORDERED: Iodixanol 320 MG/ML 100 ML BOTTLE IV ONE (11:27)
[2018-03-03 11:59] VITALS: RESP 18
[2018-03-03 12:19] VITALS: BP 116/82; PULSE 77; TEMP 98.7; O2SAT 99
--- NOTE | 2018-03-03 12:44 | CP.SDSHP ---
Same Day Surgery H & P - History Proposed Procedure: Medication port check Pre-Op Diagnosis: Malfunction of the right sided medicatoin port. - Allergies Allergies: Allergies chloroquine Allergy (Verified 02/19/18 21:43) ITCHING tramadol Allergy (Verified 02/19/18 21:43) SHORTNESS OF BREATH - Physical Exam Vital Signs: Vital Signs 03/03/18 03/03/18 03/03/18 10:30 11:58 12:00 Temperature 98.3 F 98.4 F 98.7 F Pulse Rate 87 70 77 Respiratory 20 18 18 Rate Blood Pressure 105/70 114/74 116/82 O2 Sat by Pulse 100 99 Oximetry Short Stay Discharge - Short Stay Discharge Admitting Diagnosis/Reason for Visit: BREAST CA Disposition: HOME/ ROUTINE
--- NOTE | 2018-03-03 12:47 | PCM.SURG1 ---
Surgeon's Initial Post Op Note - Surgeon's Notes Surgeon: Jesús Architectural Sales Consultant: None Type of Anesthesia: Local Pre-Operative Diagnosis: Medication port malfunction Operative Findings: Medication port catheter in the IJV Post-Operative Diagnosis: Medication port malfunction with the catheter in the right IJV Operation Performed: Flourscopic evaluation of the right sided medication port Specimen/Specimens Removed: None Estimated Blood Loss: EBL {In ML}: 1 Date of Surgery/Procedure: 03/03/18 Time of Surgery/Procedure: 12:00
--- NOTE | 2018-03-04 11:20 | VASCULAR ---
Medication port check History: Functioning right-sided medication port. Comparison: Comparison is made to fluoroscopic image from port placement performed on 02/04/2018. Procedure and findings: Informed consent was obtained from the patient after discussing relative risks and benefits. The patient was positioned supine on the angiographic table. An fluoroscopic images of the port was obtained. The port catheter is seen traversing into the internal jugular vein along the right neck with the distal tip near the angle of the jaw. Port was accessed but not injected with contrast. This port should not be used and was discussed with Dr. Scales at the end of the procedure. Impression: Port catheter traversing along the right neck with the distal tip overlying the projection of the internal jugular vein near the angle of the jaw. Port not to be used.
== END 2018-03-03 13:00 | disposition home or self-care (01) ==
LOC: H.OPSURG 09:37
PROVIDERS: ATTEND Specialist
DX: T82.514A Breakdown (mechanical) of infusion catheter, initial encounter (principal)
CPT/HCPCS: 37799; Q9967

== ENCOUNTER 2018-03-10 08:01 | Day surgery (SDC) | payer OTHER ==
[2018-03-10] MEDS ORDERED: Lactated Ringer's 1,000 ML IV ONE ×2 (08:50→11:30)
[2018-03-10 08:53] VITALS: RESP 18; O2SAT 100
[2018-03-10] MEDS ORDERED: Lidocaine 1% w Epi 1:100,000 Inj ONE (10:55)
[2018-03-10] MEDS ORDERED: Lidocaine 1% Inj (20ml) ONE (10:55)
--- NOTE | 2018-03-10 11:31 | CP.SDSHP ---
Same Day Surgery H & P - History Proposed Procedure: Right port revision Pre-Op Diagnosis: Right port revision - Allergies Allergies: Allergies chloroquine Allergy (Verified 03/10/18 08:53) ITCHING tramadol Allergy (Verified 03/10/18 08:53) SHORTNESS OF BREATH - Physical Exam Vital Signs: Vital Signs 03/10/18 03/10/18 08:51 10:45 Temperature 98.1 F 98.6 F Pulse Rate 88 80 Respiratory 18 18 Rate Blood Pressure 98/62 L 118/84 O2 Sat by Pulse 100 100 Oximetry Mental Status: Alert & Oriented x3 - Impression Impression: Pt with malpositioned port. Plan port revision. Pt. Evaluated Today:Candidate for Anesthesia & Procedure: Yes (ASA 3 Malampati 3) - Date & Time Date: 03/10/18 Time: 10:45 Short Stay Discharge - Short Stay Discharge Admitting Diagnosis/Reason for Visit: BREAST CA, C18.9 Disposition: HOME/ ROUTINE
--- NOTE | 2018-03-10 11:33 | PCM.SURG1 ---
Surgeon's Initial Post Op Note - Surgeon's Notes Surgeon: Donavan Morocho MD Tobacco Sorter: NONE Type of Anesthesia: Local Pre-Operative Diagnosis: Malpositioned port, breast cancer Operative Findings: Fluoroscopic image showed port catheter in right IJV. Post-Operative Diagnosis: Malpositioned port, breast cancer Operation Performed: Port replacement. Specimen/Specimens Removed: NONE Estimated Blood Loss: EBL {In ML}: 2 Blood Products Given: N/A Drains Used: No Drains Post-Op Condition: Fair Date of Surgery/Procedure: 03/10/18 Time of Surgery/Procedure: 11:30
[2018-03-10] MEDS: HYDROmorphone 0.5 mg/0.5 ml ISec IVP PRN ×3 (11:34→12:20)
[2018-03-10] MEDS ORDERED: HYDROmorphone 0.5 mg/0.5 ml ISec ONE (11:37)
[2018-03-10] MEDS ORDERED: Dexamethasone 4 mg/1 ml IVP PRN (11:37)
[2018-03-10] MEDS ORDERED: Lactated Ringer's 1,000 ML IV SCH (11:45)
--- NOTE | 2018-03-10 12:06 | VASCULAR ---
PROCEDURE: Date of procedure: 03/10/2018 Procedure: 1. Placement of a right IJ port catheter with fluoroscopic guidance, CPT 49970 2. Catheter tip confirmation with spot radiograph in the superior vena cava. Medications: The patient was sedated anesthesiologist along with monitoring, Ancef 1 gm, 10cc lidocaine 1% w Epinephrine Fluoroscopic time: 191. Seconds Radiation: 18.88 MGy Blood loss: 4 cc HISTORY: Breast cancer requiring port for chemotherapy, malpositioned port. TECHNIQUE: Fluoroscopic showed a right IJ port with the catheter tip in the internal jugular vein. After the patient was sedated by the anesthesiologist, the port pocket anesthetized with 1% lidocaine with epinephrine. A dermatotomy was made with a 15. Scalpel over the previous port incision. The port along with the catheter were removed. A guidewire was advanced through the catheter into the internal jugular vein and into the IVC. A new port and catheter were advanced over the wire and position within superior vena cava. The catheter was adjusted for length and attached to the port which was placed in the port pocket. The port pocket was then closed with absorbable 4-0 Polysorb. The port was flushed and locked with heparin. Final spot radiograph showed the right IJ port catheter with tip of the port catheter in the superior vena cava. A port is functional and ready for use. IMPRESSION: Right IJ port revision. Placement of a new right IJ port with tip of port catheter in the superior vena cava.
[2018-03-10 14:56] VITALS: BP 115/85; PULSE 83; TEMP 97.4
== END 2018-03-10 15:10 | disposition home or self-care (01) ==
LOC: H.OPSURG 08:01
PROVIDERS: ATTEND Specialist
DX: C50.919 Malignant neoplasm of unspecified site of unspecified female breast (principal); J45.909 Unspecified asthma, uncomplicated; I10 Essential (primary) hypertension
CPT/HCPCS: 36582; A4310; C1725; C1769; J1170; J2405; J7120